=== PATIENT | female | born 1960 | race Caucasian/White ===

== ENCOUNTER 2020-07-24 15:28 | Emergency (ER) | payer MEDICAID ==
[~2020-07-24] VITALS: Ht 162.6 cm; Wt 62.1 kg
[2020-07-24 15:45] VITALS: BP 174/107; Ht 162.6 cm; Wt 62.1 kg
== END 2020-07-24 16:39 | disposition home or self-care (01) ==
LOC: ED 15:28
DX: M79.10 Myalgia, unspecified site (principal); M54.6 Pain in thoracic spine; I10 Essential (primary) hypertension; Z88.6 Allergy status to analgesic agent; Z88.5 Allergy status to narcotic agent; V49.59XA Passenger injured in collision with other motor vehicles in traffic accident, initial encounter; Y93.I9 Activity, other involving external motion; Y92.413 State road as the place of occurrence of the external cause; Y99.8 Other external cause status

== ENCOUNTER 2020-09-01 18:28 | Emergency (ER) | payer MEDICAID ==
[~2020-09-01] VITALS: Ht 162.6 cm; Wt 61.2 kg
[2020-09-01 18:41] VITALS: Ht 162.6 cm; Wt 61.2 kg
[2020-09-01] MEDS ORDERED: CILOS OU (20:19)
[2020-09-01] MEDS ORDERED: IBUPROFEN600 MG PO (20:19)
[2020-09-01] MEDS ORDERED: ACETAMINOPHEN-H1 TA1 PO (20:19)
[2020-09-01 20:47] VITALS: BP 179/112
== END 2020-09-01 20:47 | disposition home or self-care (01) ==
LOC: ED 18:28
DX: H16.001 Unspecified corneal ulcer, right eye (principal); H10.89 Other conjunctivitis; I10 Essential (primary) hypertension; F17.210 Nicotine dependence, cigarettes, uncomplicated; Z88.5 Allergy status to narcotic agent; Z88.6 Allergy status to analgesic agent
CPT/HCPCS: Q0162